=== PATIENT | female | born 1980 | race Caucasian/White ===

== ENCOUNTER 2021-10-05 10:07 | Emergency (ER) | payer MEDICAID ==
[~2021-10-05] VITALS: Ht 149.9 cm; Wt 90.9 kg
[~2021-10-05 10:07] MED LIST: ALBU8HFA IH; ARIP30TA PO; ASEN10TA10 SL; BENZ1TAB70 PO; DIVA-112 PO; FLUT1DIS6 IH
[2021-10-05 10:40] LABS: GLUCOMETER DEV NAME(LOC) ERT.5; GLUCOSE,POINT OF CARE 213 MG/DL (70-110)
[2021-10-05 10:46] LABS: BASOPHILS % (AUTO) 0.7 % (0.0-2.0); EOSINOPHILS % (AUTO) 2.3 % (1.0-6.0); HEMATOCRIT 42.5 % (36-46); HEMOGLOBIN 14.3 g/dL (12.0-16.0); LYMPHOCYTES # (AUTO) 2.2 K/uL (1.0-4.8); LYMPHOCYTES % (AUTO) 29.9 % (22.0-44.0); MEAN CORPUSCULAR HEMOGLOBIN 30.2 pg (26.0-34.0); MEAN CORPUSCULAR HGB CONC 33.7 G/dL (31.0-37.0); MEAN CORPUSCULAR VOLUME 90 fL (80-100); MONOCYTES # (AUTO) 0.6 K/uL (0.1-1.0); MONOCYTES % (AUTO) 7.7 % (2.0-9.0); NEUTROPHILS # (AUTO) 4.4 K/uL (1.8-7.7); NEUTROPHILS % (AUTO) 59.4 % (40.0-70.0); PLATELET COUNT (AUTO) 326 K/uL (150-450); RED BLOOD CELL COUNT(AUTO) 4.74 MIL/uL (4.00-5.20); RED CELL DISTRIBUTION WIDTH 14.3 % (11.5-14.5)
[2021-10-05] MEDS ORDERED: CLOZ100T32 PO (10:48)
[2021-10-05] MEDS ORDERED: DOCU100T PO (10:48)
[2021-10-05] MEDS ORDERED: DOCU-270 PO (10:48)
[2021-10-05 10:52] LABS: ANION GAP 6 mmol/L (8-16); CALCIUM, TOTAL 9.3 mg/dL (8.8-10.5); CARBON DIOXIDE 27 mmol/L (22-29); CHLORIDE 104 mmol/L (98-107); CREATININE 0.79 mg/dL (0.60-1.30); GLOMERULAR FILTR. RATE CALC > 60 mL/min (>60); GLUCOSE,RANDOM 212 mg/dL (70-110); SODIUM SERUM 137 mmol/L (136-145); UREA NITROGEN, BLOOD 4 mg/dL (7-18)
[2021-10-05] MEDS ORDERED: PROP60CA31 PO (10:54)
[2021-10-05] MEDS ORDERED: METF-1211 PO (10:54)
[2021-10-05 10:58] LABS: ALANINE AMINOTRANSFERASE 17 U/L (12-78); ALBUMIN 3.4 g/dL (3.4-5.0); ALKALINE PHOSPHATASE 68 U/L (46-116); ASPARTATE AMINOTRANSFERASE 6 U/L (15-37); BILIRUBIN,TOTAL 0.3 mg/dL (0.1-1.0); TOTAL PROTEIN, SERUM 6.9 g/dL (6.4-8.2)
[2021-10-05] MEDS ORDERED: BENZTROPINE MESYLATE 1 MG TABLET PO ONE (14:00)
[2021-10-05] MEDS ORDERED: ARIPiprazole 15 MG TABLET PO ONE (14:00)
[2021-10-05] MEDS ORDERED: CloZAPine 100 MG TABLET PO ONE (14:00)
[2021-10-05] MEDS ORDERED: DIVALPROEX SODIUM 500 MG ER TABLET PO ONE (14:00)
[2021-10-05] MEDS ORDERED: MetFORMIN HCL 500 MG TABLET PO ONE (14:00)
[2021-10-05 14:13] LABS: COVID AG,FIA SOURCE NASAL SWAB
[2021-10-05 14:35] LABS: GLUCOSE,POINT OF CARE 171 MG/DL (70-110)
[2021-10-06 06:53] LABS: GLUCOMETER DEV NAME(LOC) ERT.5; GLUCOSE,POINT OF CARE 163 MG/DL (70-110)
[2021-10-06 07:32] VITALS: BP 116/69
== END 2021-10-06 10:52 | disposition home or self-care (01) ==
LOC: EMS 10:07
DX: R46.89 Other symptoms and signs involving appearance and behavior (principal); F20.9 Schizophrenia, unspecified; F19.10 Other psychoactive substance abuse, uncomplicated; E11.65 Type 2 diabetes mellitus with hyperglycemia; Z20.822 Contact with and (suspected) exposure to COVID-19
CPT/HCPCS: 36415; 80053; 82962; 84703; 85025; 87426; 99284; G0480

== ENCOUNTER 2022-11-04 18:18 | Emergency (ER) | payer MEDICAID ==
[~2022-11-04] VITALS: Ht 160 cm; Wt 54.5 kg
[~2022-11-04 18:18] MED LIST changes: -ALBU8HFA IH; -ASEN10TA10 SL; +ASEN10TA14 SL; +CLOZ100T68 PO; +DOCU-385 PO; -FLUT1DIS6 IH; +METF-1211 PO; +PROP60CA31 PO
[2022-11-04 18:24] VITALS: BP 113/82
== END 2022-11-04 21:35 | disposition left against medical advice (07) ==
LOC: EMS 18:44
DX: Z53.21 Procedure and treatment not carried out due to patient leaving prior to being seen by health care provider (principal)

== ENCOUNTER 2022-11-05 20:56 | Emergency (ER) | payer MEDICAID ==
[~2022-11-05] VITALS: Ht 170.2 cm; Wt 63.7 kg
[2022-11-05 21:21] VITALS: BP 118/66
[2022-11-05] MEDS ORDERED: BACITRACIN 0.9 GM PACKET OINTMENT TP ONE (21:30)
== END 2022-11-05 23:00 | disposition home or self-care (01) ==
LOC: EMS 21:14
DX: F13.99 Sedative, hypnotic or anxiolytic use, unspecified with unspecified sedative, hypnotic or anxiolytic-induced disorder (principal); E11.9 Type 2 diabetes mellitus without complications; F20.9 Schizophrenia, unspecified
CPT/HCPCS: 99283

== ENCOUNTER 2024-11-24 19:08 | Inpatient (IN) | payer MEDICAID ==
[~2024-11-24] VITALS: Ht 167.6 cm; Wt 83.1 kg
[~2024-11-24 19:08] MED LIST changes: +CLOZ100T11 PO; +CLOZ100T12 PO; -CLOZ100T68 PO; +DIVA-153 PO; +MELA5TAB40 PO; +NALT50TA6 PO; +OMEG-135 PO
[2024-11-24] MEDS ORDERED: LORazepam 2 MG TABLET PO PRN (20:45)
[2024-11-24] MEDS ORDERED: ZOLPIDEM TARTRATE 10 MG TABLET PO PRN (20:45)
[2024-11-24] MEDS ORDERED: HALOPERIDOL 5 MG TABLET PO PRN (20:45)
[2024-11-24 20:59] LABS: BASOPHILS % (AUTO) 0.6 % (0.0-2.0); EOSINOPHILS % (AUTO) 1.7 % (1.0-6.0); HEMATOCRIT 37.2 % (36-46); HEMOGLOBIN 12.4 g/dL (12.0-16.0); LYMPHOCYTES # (AUTO) 2.3 K/uL (1.0-4.8); LYMPHOCYTES % (AUTO) 30.1 % (22.0-44.0); MEAN CORPUSCULAR HEMOGLOBIN 29.4 pg (26.0-34.0); MEAN CORPUSCULAR HGB CONC 33.4 G/dL (31.0-37.0); MEAN CORPUSCULAR VOLUME 88 fL (80-100); MONOCYTES # (AUTO) 0.6 K/uL (0.1-1.0); MONOCYTES % (AUTO) 8.4 % (2.0-9.0); NEUTROPHILS # (AUTO) 4.6 K/uL (1.8-7.7); NEUTROPHILS % (AUTO) 59.2 % (40.0-70.0); PLATELET COUNT (AUTO) 286 K/uL (150-450); RED BLOOD CELL COUNT(AUTO) 4.23 MIL/uL (4.00-5.20); RED CELL DISTRIBUTION WIDTH 13.7 % (11.5-14.5); WHITE BLOOD COUNT (AUTO) 7.7 K/uL (4.5-11.0)
[2024-11-24 21:06] LABS: ANION GAP 8 mmol/L (8-16); CALCIUM, TOTAL 8.6 mg/dL (8.8-10.5); CARBON DIOXIDE 27 mmol/L (22-29); CHLORIDE 99 mmol/L (98-107); CREATININE 0.87 mg/dL (0.60-1.30); GLOMERULAR FILTR. RATE CALC > 60 mL/min (>60); GLUCOSE,RANDOM 144 mg/dL (70-110); POTASSIUM 3.8 mmol/L (3.5-5.1); SODIUM SERUM 134 mmol/L (136-145); UREA NITROGEN, BLOOD 16 mg/dL (7-18)
[2024-11-24] MEDS: DiphenhydrAMINE HCL 25 MG CAPSULE PO ONE (21:15)
[2024-11-24] MEDS: OLANZapine 5 MG TABLET PO ONE (21:15)
[2024-11-24 21:40] LABS: ALCOHOL, BLOOD (SERUM) < 3 mg/dL (0-10)
[2024-11-24 21:40] LABS: COVID AG,FIA SOURCE NASAL SWAB
[2024-11-24 22:10] LABS: SARS-COV2 (COVID) ANTIGEN,FIA Negative (Negative)
[2024-11-25 01:10] VITALS: O2SAT 99
[2024-11-25 02:47] VITALS: BP 136/88; PULSE 92; RESP 16; TEMP 96; O2SAT 96
[2024-11-25] MEDS: INFLUENZA VIRUS VACCINE TVS (6MO+) 2024-25/PF 45 MCG/0.5 ML SYRINGE IM. ONE (04:37)
[2024-11-25 08:34] VITALS: BP 118/74; PULSE 76; RESP 16; TEMP 97.8; O2SAT 96
[2024-11-25] MEDS: DIVALPROEX SODIUM 500 MG DR TABLET PO SCH (13:27)
[2024-11-25] MEDS: DULoxetine HCL 30 MG CAPSULE PO SCH (13:27)
[2024-11-25] MEDS: MetFORMIN HCL 500 MG TABLET PO SCH (16:14)
[2024-11-25] MEDS: MELATONIN 5 MG TABLET PO SCH (20:08)
[2024-11-25] MEDS: CloZAPine 100 MG TABLET PO SCH (20:08)
[2024-11-25 20:10] VITALS: BP 150/96; PULSE 92; RESP 18; TEMP 97.2; O2SAT 91
[2024-11-26] MEDS: GEMFIBROZIL 600 MG TABLET PO SCH (06:38)
[2024-11-26] MEDS ORDERED: MetFORMIN HCL 500 MG TABLET PO SCH (07:00)
[2024-11-26 08:30] VITALS: RESP 17
[2024-11-26] MEDS ORDERED: ALBUTEROL SULFATE HFA 90 MCG/PUFF 8 GM INHALER IH PRN (15:00)
[2024-11-26] MEDS ORDERED: ACETAMINOPHEN 325 MG TABLET PO PRN (15:00)
[2024-11-26] MEDS ORDERED: IBUPROFEN 400 MG TABLET PO PRN (15:00)
[2024-11-26] MEDS ORDERED: GuaiFENesin/D-METHORPHAN [SUGAR-FREE] 200-20MG/10 ML SYRUP UDCUP PO PRN (15:00)
[2024-11-26] MEDS ORDERED: ONDANSETRON 4 MG TABLET PO PRN (15:00)
[2024-11-26] MEDS ORDERED: MAG HYDROX/ALUMINUM HYD/SIMETH ES 30 ML SUSPENSION UDCUP PO PRN (15:00)
[2024-11-26] MEDS ORDERED: LOPERAMIDE HCL 2 MG CAPSULE PO PRN (15:00)
[2024-11-26] MEDS ORDERED: DOCUSATE SODIUM 100 MG CAPSULE PO PRN (15:00)
[2024-11-26] MEDS ORDERED: MAGNESIUM HYDROXIDE SUSPENSION 30 ML UDCUP PO PRN (15:00)
[2024-11-26] MEDS ORDERED: PETROLATUM,WHITE 28 GM JELLY TP PRN (15:00)
[2024-11-26] MEDS ORDERED: NICOTINE 14 MG/24 HOUR PATCH TD PRN (15:00)
[2024-11-26] MEDS: MetFORMIN HCL 500 MG TABLET PO SCH (17:19)
[2024-11-26 22:36] VITALS: RESP 18
[2024-11-27 08:17] LABS: HEMOGLOBIN A1C 7.8 % (3.8-5.6)
[2024-11-27 08:35] LABS: THYROID STIMULATING HORMONE 1.98 uIU/mL (0.36-3.74)
[2024-11-27] MEDS: OMEGA-3/DHA/EPA/FISH OIL 1,000 MG CAPSULE PO SCH (08:39)
[2024-11-27] MEDS: PROPRANOLOL HCL 40 MG TABLET PO SCH (08:39)
[2024-11-27 08:42] VITALS: BP 118/66; PULSE 97; RESP 16; TEMP 97.9; O2SAT 98
[2024-11-27] MEDS ORDERED: PROPRANOLOL HCL 60 MG ER CAPSULE PO SCH (09:00)
[2024-11-27 21:13] VITALS: BP 134/82; PULSE 79; RESP 15; TEMP 89.4; TEMP 97.5; O2SAT 97
[2024-11-28 08:23] VITALS: BP 123/86; PULSE 79; RESP 16; TEMP 97.6; O2SAT 98
[2024-11-28 20:11] VITALS: BP 128/78; PULSE 83; RESP 16; TEMP 98.3; O2SAT 98
[2024-11-29 08:16] VITALS: BP 121/73; PULSE 79; RESP 16; TEMP 97.6; O2SAT 97
[2024-11-29 20:03] VITALS: BP 104/72; PULSE 92; RESP 17; TEMP 97.5
[2024-11-30 08:12] VITALS: BP 111/70; PULSE 94; RESP 17; TEMP 97; O2SAT 95
[2024-11-30] MEDS ORDERED: PROP40TA7 PO (11:25)
[2024-11-30] MEDS ORDERED: GEMF-77 PO (11:26)
[2024-11-30] MEDS ORDERED: DIVA-112 PO (11:27)
[2024-11-30] MEDS ORDERED: DULO-114 PO (11:28)
== END 2024-11-30 15:25 | DRG 750 ==
LOC: EMS 19:08 → B3A 11-25 01:11 → EMS 11-25 01:14
PROVIDERS: ADMIT Psychiatry & Neurology Psychiatry; ATTEND Psychiatry & Neurology Psychiatry
PROC: GZHZZZZ Group Psychotherapy (ICD-10-PCS; principal; 2024-11-26)
PROC: GZ52ZZZ Individual Psychotherapy, Cognitive (ICD-10-PCS; 2024-11-26)
DX: F20.0 Paranoid schizophrenia (principal); E11.9 Type 2 diabetes mellitus without complications; R45.851 Suicidal ideations; E78.5 Hyperlipidemia, unspecified; G47.00 Insomnia, unspecified; Z79.899 Other long term (current) drug therapy; Z20.822 Contact with and (suspected) exposure to COVID-19; F32.A Depression, unspecified; J45.909 Unspecified asthma, uncomplicated; K59.00 Constipation, unspecified
CPT/HCPCS: 80048; 80061; 80164; 83036; 84443; 84703; 85025; 87081; 99285; G0480